=== PATIENT | male | born 1960 | race Caucasian/White ===

== ENCOUNTER 2016-08-02 09:49 | Emergency (ER) | payer MEDICAID ==
[2016-08-02 10:09] VITALS: BP 127/80; PULSE 104; RESP 16; TEMP 98.2; O2SAT 97
[2016-08-02] MEDS ORDERED: TDAP ADULT 0.5 ML INJ (BOOSTRIX) IM ONE (10:11)
--- NOTE | 2016-08-02 10:12 | EDPHY ---
H & P Time Seen by Provider: 08/02/16 10:11 HPI/ROS: This patient was working at home and sustained a superficial puncture wound to the left 4th finger from a skip nail. He thinks that is been more than 10 years since his last tetanus and requests a tetanus immunization. He reports minimal discomfort from the finger injury and cleaned at in the bathroom sink after arrival here. Incident occurred shortly prior to arrival. ROS: Neuro: No numbness or tingling to the affected finger. Musculoskeletal: No other injuries. 5 point ROS is otherwise negative Past Medical/Surgical History: Otherwise healthy Smoking Status: Current some day smoker Physical Exam: Physical Exam Vital signs are normal. General: No acute distress Lungs: No respiratory distress. Cardiac: Brisk capillary refill is intact throughout. Skin: No rash or pallor. There is a superficial puncture wound to the left 4th finger tip with no foreign bodies evident. Is cause bleeding if you squeeze the finger but none at baseline and there is no evidence of foreign body and direct examination of basically non visible size wound in the see squeeze it. Neuro: Alert and oriented with no sensorimotor deficits in the affected finger. Constitutional: Initial Vital Signs Temperature (C) 36.8 C 08/02/16 10:00 Heart Rate 104 H 08/02/16 10:00 Respiratory Rate 16 08/02/16 10:00 Blood Pressure 127/80 H 08/02/16 10:00 O2 Sat (%) 97 08/02/16 10:00 O2 Delivery Mode Room Air Allergies/Adverse Reactions: No Known Allergies Allergy (Unverified 08/02/16 10:08) Home Medications: Medication Instructions Recorded Htn Meds X 2 Kinds 08/02/16 MDM/Departure - MDM Medications Given: Discontinued Medications Diphtheria/Tetanus/Acell Pertussis (Boostrix) 0.5 ml IM .ONCE ONE Stop: 08/02/16 10:12 Last Admin: 08/02/16 10:19 Dose: 0.5 ml ED Course/Re-evaluation: Wound is cleaned with chlorhexidine by our nurse. Tetanus immunizations administered I counseled the patient regarding wound care. Discussion: This is a very superficial wound I think with no significant risk of tetanus will hold off on tetanus immunoglobulin at this time - Depart Disposition: Home, Routine, Self-Care Clinical Impression: Puncture wound Condition: Good Instructions: Puncture Wound (ED) Additional Instructions: Diagnosis: Puncture wound finger Plan: Clean the wound daily Return for redness, discharge or any significant worsening despite the treatment plan Referrals: LIZETTE,UNKNOWN [Other] - As per Instructions
== END 2016-08-02 10:25 | disposition home or self-care (01) ==
LOC: CED 09:49
DX: S61.235A Puncture wound without foreign body of left ring finger without damage to nail, initial encounter (principal); F17.200 Nicotine dependence, unspecified, uncomplicated; Z23 Encounter for immunization; W45.0XXA Nail entering through skin, initial encounter; Y92.009 Unspecified place in unspecified non-institutional (private) residence as the place of occurrence of the external cause